=== PATIENT | female | born 1995 | race Caucasian/White ===

== ENCOUNTER 2017-05-02 21:01 | Emergency (ER) | payer MEDICAID, OTHER ==
[2017-05-02 21:09] VITALS: RESP 16
--- NOTE | 2017-05-02 21:30 | C.PDOC ---
Chief Complaint (Nursing): Chest Pain Past Medical History Vital Signs: Last Vital Signs Temp 98 F 05/02/17 21:08 Pulse 76 05/02/17 21:08 Resp 16 05/02/17 21:08 BP 110/74 05/02/17 21:08 Pulse Ox 100 05/02/17 21:08 Surgical History: Appendectomy, Cholecystectomy - Social History Hx Alcohol Use: No Hx Substance Use: No - Immunization History Hx Tetanus Toxoid Vaccination: No Hx Influenza Vaccination: No Hx Pneumococcal Vaccination: No ED Course And Treatment ECG: Interpreted By Me, Viewed By Me ECG Rhythm: Sinus Rhythm ECG Interpretation: Normal, No Acute Changes Interpretation Of ECG: NSR, normal tracings Rate From EC O2 Sat by Pulse Oximetry: 100 Pulse Ox Interpretation: Normal Disposition - Disposition Forms: [employer] (Martiniquais)
--- NOTE | 2017-05-02 21:31 | C.PDOC ---
History Of Present Illness A 21 y/o F with Hx of lightheadedness and dizziness, c/o intermittent dizziness , chest pain, and lightheadedness with occasional SOB that began today. Denies nausea, vomiting, or any other complaints. Time Seen by Provider: 05/02/17 21:28 Chief Complaint (Nursing): Chest Pain History Per: Patient History/Exam Limitations: no limitations Onset/Duration Of Symptoms: Hrs, Intermittent Episodes Current Symptoms Are (Timing): Still Present Severity: Mild Quality: "Pain" Modifying Factors: None Exacerbating Factors: None Recent travel outside of the [place]: No Additional History Per: Patient Past Medical History Reviewed: Historical Data, Nursing Documentation, Vital Signs Vital Signs: Last Vital Signs Temp 98 F 05/02/17 21:08 Pulse 76 05/02/17 21:08 Resp 16 05/02/17 21:08 BP 110/74 05/02/17 21:08 Pulse Ox 100 05/02/17 22:47 Surgical History: Appendectomy, Cholecystectomy Family History: States: Unknown Family Hx - Social History Hx Alcohol Use: No Hx Substance Use: No - Immunization History Hx Tetanus Toxoid Vaccination: No Hx Influenza Vaccination: No Hx Pneumococcal Vaccination: No Review Of Systems Except As Marked, All Systems Reviewed And Found Negative. Cardiovascular: Positive for: Chest Pain, Light Headedness Respiratory: Positive for: Shortness of Breath Gastrointestinal: Negative for: Nausea, Vomiting Neurological: Positive for: Dizziness Physical Exam - Physical Exam Appears: Non-toxic, No Acute Distress Skin: Warm, Dry Head: Atraumatic, Normacephalic Cardiovascular: Rhythm Regular Respiratory: Normal Breath Sounds, No Rales, No Rhonchi, No Wheezing Gastrointestinal/Abdominal: Soft, No Tenderness Neurological/Psych: Oriented x3, Normal Speech, Normal Cognition, Other (No focal defocot) Gait: Steady ED Course And Treatment - Laboratory Results Result Diagrams: 05/02/17 21:34 05/02/17 21:34 ECG: Interpreted By Me, Viewed By Me ECG Rhythm: Sinus Rhythm ECG Interpretation: Normal, No Acute Changes Interpretation Of ECG: NSR, normal tracings Rate From EC O2 Sat by Pulse Oximetry: 100 (RA) Pulse Ox Interpretation: Normal - Radiology CXR: Interpreted by Me, Viewed By Me CXR Interpretation: Yes: No Acute Disease, Other (normal chest film) Medical Decision Making Medical Decision Making: Impression: A 21 y/o F c/o intermittent dizziness, chest pain, and lightheadedness with occasional SOB. Hx of lightheadedness and dizziness. Plans: -CT Head -EKG -Blood work up -CXR -UA -Reassess Disposition Counseled Patient/Family Regarding: Diagnosis - Disposition Referrals: [facility] at [facility] [Outside] Disposition: HOME/ ROUTINE Disposition Time: 22:49 Condition: STABLE Prescriptions: Naproxen [Naprosyn Tab] 375 mg PO TIDPC #20 tab Instructions: Chest Wall Pain (ED) Forms: [employer] (Argentine) - POA Present On Arrival: None - Clinical Impression Clinical Impression: Non-cardiac chest pain - Scribe Statement The provider has reviewed the documentation as recorded by the Scribe Les casillas All medical record entries made by the Scribe were at my direction and personally dictated by me. I have reviewed the chart and agree that the record accurately reflects my personal performance of the history, physical exam, medical decision making, and the department course for this patient. I have also personally directed, reviewed, and agree with the discharge instructions and disposition.
[2017-05-02 21:50] LABS: CHLORIDE 101 mmol/L (98-107); SODIUM 142 mmol/L (132-148)
[2017-05-02 21:51] LABS: POTASSIUM 4.6 mmol/L (3.6-5.2)
[2017-05-02 21:52] LABS: ALB/GLOB RATIO 1.3 (1.0-2.1); ALKALINE PHOSPHATASE 58 U/L (38-126); AST/SGOT 43 U/L (14-36); BILIRUBIN,TOTAL 1.4 mg/dL (0.2-1.3); CARBON DIOXIDE 25 mmol/L (22-30); GFR AFRICAN-AMERICAN > 60; TOTAL PROTEIN 8.5 g/dL (6.3-8.3)
[2017-05-02 21:53] LABS: ALT/SGPT 12 U/L (9-52); BLOOD UREA NITROGEN 16 mg/dL (7-17); CALCIUM 8.9 mg/dl (8.6-10.4); GLUCOSE,RANDOM 95 mg/dL (65-105)
[2017-05-02 22:04] LABS: BASO % 0.4 % (0.0-2.0); EOS # 0.2 K/uL (0.0-0.7); EOS % 2.5 % (0.0-4.0); HEMATOCRIT 41.4 % (34.0-47.0); LYMPH # 3.1 K/uL (1.0-4.3); LYMPH % 38.6 % (20.0-40.0); MEAN CELL VOLUME 94.4 fL (81.0-99.0); MEAN CORPUSCULAR HEMOGLOBIN 32.4 pg (27.0-31.0); MEAN CORPUSCULAR HGB CONC 34.3 g/dL (33.0-37.0); MEAN PLATELET VOLUME 9.5 fL (7.2-11.7); MONO # 0.5 K/uL (0.0-0.8); MONO % 6.2 % (0.0-10.0); RED CELL DISTRIBUTION WIDTH 12.5 % (11.5-14.5); WHITE BLOOD COUNT 7.9 K/uL (4.8-10.8)
--- NOTE | 2017-05-02 22:22 | CT ---
EXAM: CT Head Without Intravenous Contrast CLINICAL HISTORY: 21 years old, female; Condition or disease; Headache; Tension; Additional info: Dizziness/ near passing out TECHNIQUE: Axial computed tomography images of the head/brain without intravenous contrast. This CT exam was performed using one or more of the following dose reduction techniques: automated exposure control, adjustment of the mA and/or kV according to patient size, and/or use of iterative reconstruction technique. COMPARISON: No relevant prior studies available. FINDINGS: Brain: No acute intracranial hemorrhage. No significant white matter disease. No edema. Ventricles: No significant ventriculomegaly. Bones: No acute displaced fracture. Sinuses: Unremarkable as visualized. No acute sinusitis. Mastoid air cells: Unremarkable as visualized. No mastoid effusion. IMPRESSION: No acute intracranial hemorrhage, or suspicious mass effect.
[2017-05-02 23:02] VITALS: BP 109/71; PULSE 79; TEMP 98.9; O2SAT 98
--- NOTE | 2017-05-03 09:13 | RAD ---
HISTORY: chest pain COMPARISON: None available. TECHNIQUE: Chest PA and lateral FINDINGS: LUNGS: No focal consolidation. Please note that chest x-ray has limited sensitivity for the detection of pulmonary masses. PLEURA: No significant pleural effusion identified. No definite pneumothorax . CARDIOVASCULAR: Heart size appears within normal limits. Abnormal contour of the right mediastinum may be exaggerated by patient obliquity. Recommend repeat PA examination with the patient in improved alignment in order to further assess. OSSEOUS STRUCTURES: Degenerative changes. VISUALIZED UPPER ABDOMEN: Unremarkable. OTHER FINDINGS: None. IMPRESSION: Abnormal contour of the right mediastinum may be exaggerated by patient obliquity. Recommend repeat PA examination with the patient in improved alignment in order to further assess this finding and whether it is artifactual or pathology. Study has been marked for PA review.
--- NOTE | 2017-05-04 07:49 | CARD ---
APPROVED REPORT EKG Measurement Heart [id number] <Conclusion> Normal sinus rhythm Normal ECG
== END 2017-05-02 23:02 | disposition home or self-care (01) ==
LOC: C.ER 21:01 → MERGE 21:01 → C.ER 23:02
DX: R07.89 Other chest pain (principal)

== ENCOUNTER 2017-06-14 13:30 | Emergency (ER) | payer MEDICAID, OTHER ==
--- NOTE | 2017-06-14 14:40 | C.PDOC ---
History Of Present Illness 21 year old female presents to the ED for evaluation of mild shortness of breath , sudden lightheadedness, feeling like she going to pass out, and palpitations for 2-3 days. Patient states she sent to ED by PMD, Dr. Bagley, and has had three types of episodes of theese symptoms. She also notes occasional neck pain that radiates to her chest; admits she has been working out in the gym more. Patient states neck pain and radiating chest pain are exacerbated by movement. She denies fever, cough, visual changes, extremity weakness, sensory changes. Time Seen by Provider: 06/14/17 14:34 Chief Complaint (Nursing): Altered Mental Status History Per: Patient History/Exam Limitations: None Onset/Duration Of Symptoms: Days (2-3 days ) Current Symptoms Are (Timing): Still Present Use Of Anticoag/Antiplatelets: No Speech Is: Normal Recent travel outside of the [place]: No Additional History Per: Prior Records (PMD, Dr. Bagley ) Associated Symptoms: Neck Pain. denies: Fever, Chills Past Medical History Reviewed: Historical Data, Nursing Documentation, Vital Signs Vital Signs: Last Vital Signs Temp 98.3 F 06/14/17 17:25 Pulse 96 H 06/14/17 17:25 Resp 18 06/14/17 17:22 BP 102/73 06/14/17 17:25 Pulse Ox 98 06/14/17 17:45 - Medical History PMH: Kidney Stones Surgical History: Appendectomy, Cholecystectomy Family History: States: No Known Family Hx - Social History Hx Tobacco Use: No Hx Alcohol Use: No Hx Substance Use: No - Immunization History Hx Tetanus Toxoid Vaccination: (unk) Hx Influenza Vaccination: No Hx Pneumococcal Vaccination: (unk) Review Of Systems Except As Marked, All Systems Reviewed And Found Negative. Constitutional: Negative for: Fever, Chills Cardiovascular: Positive for: Palpitations. Negative for: Chest Pain Respiratory: Positive for: Shortness of Breath. Negative for: Cough Gastrointestinal: Negative for: Nausea, Vomiting, Abdominal Pain, Diarrhea Neurological: Positive for: Other (feels as though she is going to pass out ). Negative for: Weakness, Numbness Physical Exam - Physical Exam Appears: Well, Non-toxic, No Acute Distress, Other ( appears mildly anxious ) Skin: Warm, Dry Head: Normacephalic Eye(s): bilateral: Normal Inspection Oral Mucosa: Moist Neck: Supple Chest: Symmetrical, No Deformity Cardiovascular: Rhythm Regular Respiratory: Normal Breath Sounds, No Rales, No Rhonchi, No Wheezing Gastrointestinal/Abdominal: Normal Exam, Bowel Sounds, Soft, No Tenderness Extremity: Normal ROM, No Tenderness, No Calf Tenderness, Capillary Refill (< 2 sec all digits ), No Deformity, No Swelling Neurological/Psych: Oriented x3, Normal Speech, Normal Cognition, Normal Cranial Nerves, No Cerebellar Signs, Normal Motor, Normal Sensation, Other ( speaking in full sentences ) Gait: Steady ED Course And Treatment - Laboratory Results Result Diagrams: 06/14/17 15:08 06/14/17 15:08 ECG: Interpreted By Me, Viewed By Me ECG Rhythm: Sinus Rhythm ECG Interpretation: No Acute Changes Interpretation Of ECG: Normal axis, no acute ST or T wave changes. Rate From EC (bpm) O2 Sat by Pulse Oximetry: 98 (room air ) Pulse Ox Interpretation: Normal - Radiology CXR: Viewed By Me, Read By Radiologist CXR Interpretation: Yes: No Acute Disease. No: Infiltrates - Other Rad V/Q Scan X-Ray: Viewed By Me, Read By Radiologist Interpretation: VQ scan. Technique: 8.3 mCi technetium 99-m Xe-133 Gas. 3.0 MCI technetium 99-m MAA administered intravenously. Comparison: Correlation is made to chest x-ray of same day. Findings: Perfusion images do not show a segmental defect. Activity extends expected margin of the lung periphery. Ventilation images do not show any significant areas of ventilation defects. Impression: Low probability for pulmonary embolus. Progress Note: Blood work, including D-dimer, EKG, CXR, UA, Upreg ordered and reviewed. Patient has seafood allergy that causes throat closing up - VQ scan ordered instead of CTA chest. Reevaluation Time: 17:25 Reassessment Condition: Improved (On reassessment, patient is resting comfortably and states she is feeling better. VQ scan shows low probability for PE. EKG and blood work WNL. Patient without cardiac risk factors - do not suspect cardiac etiology. Patient instructed to follow up with PMD in 1-2 days , and she understands she should return to ED if symptoms return/worsen.) Disposition Counseled Patient/Family Regarding: Diagnosis, Need For Followup, Smoking Cessation - Disposition Referrals: Juan Bagley DO [Staff Provider] - Disposition: HOME/ ROUTINE Disposition Time: 17:25 Condition: STABLE Additional Instructions: FOLLOW UP WITH YOUR DOCTOR IN 1-2 DAYS RETURN TO ER IF YOU HAVE ANY CONCERNING SYMPTOMS Instructions: Palpitations (ED), Noncardiac Chest Pain (ED) Forms: [employer] (Occitan) Print Language: BENGALI - Clinical Impression Clinical Impression: Palpitations, Non-cardiac chest pain - Scribe Statement The provider has reviewed the documentation as recorded by the Scribzo Elam All medical record entries made by the Margeibzo were at my direction and personally dictated by me. I have reviewed the chart and agree that the record accurately reflects my personal performance of the history, physical exam, medical decision making, and the department course for this patient. I have also personally directed, reviewed, and agree with the discharge instructions and disposition.
[2017-06-14 15:15] LABS: BASO % 0.4 % (0.0-2.0); EOS # 0.1 K/uL (0.0-0.7); EOS % 0.6 % (0.0-4.0); HEMATOCRIT 41.7 % (34.0-47.0); LYMPH # 1.7 K/uL (1.0-4.3); LYMPH % 17.7 % (20.0-40.0); MEAN CELL VOLUME 92.9 fL (81.0-99.0); MEAN CORPUSCULAR HEMOGLOBIN 32.2 pg (27.0-31.0); MEAN CORPUSCULAR HGB CONC 34.7 g/dL (33.0-37.0); MEAN PLATELET VOLUME 8.8 fL (7.2-11.7); MONO # 0.6 K/uL (0.0-0.8); MONO % 5.9 % (0.0-10.0); NRBC % 0.1 % (0.0-2.0); RED CELL DISTRIBUTION WIDTH 12.7 % (11.5-14.5); WHITE BLOOD COUNT 9.6 K/uL (4.8-10.8)
--- NOTE | 2017-06-14 15:21 | RAD ---
PROCEDURE: CHEST RADIOGRAPH, 1 VIEW HISTORY: palpitations COMPARISON: None available. FINDINGS: LUNGS: The lungs are well inflated and clear. PLEURA: No pneumothorax or pleural fluid seen. CARDIOVASCULAR: Normal. OSSEOUS STRUCTURES: No significant abnormalities. VISUALIZED UPPER ABDOMEN: Normal. OTHER FINDINGS: None. IMPRESSION: No active pulmonary disease.
[2017-06-14 15:24] LABS: ALB/GLOB RATIO 1.2 (1.0-2.1); ALKALINE PHOSPHATASE 66 U/L (38-126); ALT/SGPT 20 U/L (9-52); AST/SGOT 17 U/L (14-36); BILIRUBIN,TOTAL 0.7 mg/dL (0.2-1.3); BLOOD UREA NITROGEN 10 mg/dL (7-17); CALCIUM 9.5 mg/dl (8.6-10.4); CARBON DIOXIDE 24 mmol/L (22-30); CHLORIDE 102 mmol/L (98-107); GFR AFRICAN-AMERICAN > 60; GLUCOSE,RANDOM 93 mg/dL (65-105); POTASSIUM 4.1 mmol/L (3.6-5.2); SODIUM 141 mmol/L (132-148); TOTAL PROTEIN 7.8 g/dL (6.3-8.3)
[2017-06-14 15:26] LABS: RBC URINE 1 /hpf (0-3); URINE BACTERIA RARE (<OCC); URINE BILIRUBIN NEGATIVE (NEGATIVE); URINE BLOOD NEGATIVE (NEGATIVE); URINE COLOR Yellow (YELLOW); URINE GLUCOSE (UA) NORMAL (Normal); URINE KETONE NEGATIVE (NEGATIVE); URINE LEUKOCYTE ESTERASE 3+ Leu/uL (Negative); URINE PROTEIN NEGATIVE (NEGATIVE); URINE UROBILINOGEN NORMAL mg/dL (0.2-1.0); WBC URINE 33 /hpf (0-5)
--- NOTE | 2017-06-14 16:38 | NM ---
VQ scan Technique: 8.3 mCi technetium 99-m Xe-133 Gas. 3.0 MCI technetium 99-m MAA administered intravenously. Comparison: Correlation is made to chest x-ray of same day. Findings: Perfusion images do not show a segmental defect. Activity extends expected margin of the lung periphery. Ventilation images do not show any significant areas of ventilation defects. Impression: Low probability for pulmonary embolus.
[2017-06-14 17:23] VITALS: RESP 18
[2017-06-14 17:25] VITALS: O2SAT 98
[2017-06-14 17:26] VITALS: BP 102/73; PULSE 96; TEMP 98.3
--- NOTE | 2017-06-15 18:44 | CARD ---
APPROVED REPORT EKG Measurement Heart [id number] [place] [id number] <Conclusion> Normal sinus rhythm Rightward axis Borderline ECG
== END 2017-06-14 17:23 | disposition home or self-care (01) ==
LOC: C.ER 13:30
DX: R00.2 Palpitations (principal); R07.89 Other chest pain
CPT/HCPCS: 71010; 78582; 80053; 81001; 82550; 82553; 84484; 84703; 85025; 85378; 93005; 99285; A9524; A9558

== ENCOUNTER 2018-05-29 10:31 | Emergency (ER) | payer MEDICAID, OTHER ==
[2018-05-29 10:51] VITALS: O2SAT 100
--- NOTE | 2018-05-29 11:33 | C.PDOC ---
History Of Present Illness 22 y/o female with PMHx of anxiety and panic attacks, presents to the ED after having a panic attack just prior to arrival. Failed outpatient therapy. Patient states she suddenly felt anxious this morning, consistent with typical panic attack episodes. She notes symptoms have mostly resolved on arrival. Patient reports taking her daily and nightly medications as prescribed. She denies any SI, HI, auditory or visual hallucinations. Time Seen by Provider: 05/29/18 10:58 Chief Complaint (Nursing): Anxiety History Per: Patient History/Exam Limitations: no limitations Onset/Duration Of Symptoms: Hrs Current Symptoms Are (Timing): Gone Modifying Factor(s): None Involuntary Hold By: None Past Medical History Reviewed: Historical Data, Nursing Documentation, Vital Signs Vital Signs: Last Vital Signs Temp 98.3 F 05/29/18 10:41 Pulse 81 05/29/18 10:41 Resp 18 05/29/18 10:41 BP 125/89 05/29/18 10:41 Pulse Ox 100 05/29/18 11:35 - Medical History PMH: Anxiety, Kidney Stones Other PMH: Panic attacks Surgical History: Appendectomy, Cholecystectomy Family History: States: Unknown Family Hx - Social History Hx Tobacco Use: No Hx Alcohol Use: No Hx Substance Use: No - Immunization History Hx Tetanus Toxoid Vaccination: (unk) Hx Influenza Vaccination: No Hx Pneumococcal Vaccination: (unk) Review Of Systems Except As Marked, All Systems Reviewed And Found Negative. Eyes: Negative for: Vision Change Cardiovascular: Negative for: Chest Pain, Palpitations Respiratory: Negative for: Shortness of Breath Gastrointestinal: Negative for: Nausea, Vomiting, Abdominal Pain Neurological: Negative for: Weakness, Numbness, Incoordination Psych: Positive for: Anxiety. Negative for: Psychosis, Suicidal ideation, Other (Homicidal ideation) Physical Exam - Physical Exam Appears: No Acute Distress, Other (Appears anxious but cooperative) Skin: Normal Color, Warm, Dry Head: Atraumatic, Normacephalic Eye(s): bilateral: Normal Inspection Oral Mucosa: Moist Neck: Normal ROM Chest: Symmetrical Cardiovascular: Rhythm Regular, No Murmur Respiratory: Normal Breath Sounds, No Accessory Muscle Use, Other (No respiratory distress) Gastrointestinal/Abdominal: Soft, No Tenderness Extremity: Bilateral: Atraumatic, Normal Color And Temperature, Normal ROM Pulses: Left Radial: Normal, Right Radial: Normal Neurological/Psych: Oriented x3, Normal Speech, Normal Cranial Nerves Gait: Steady ED Course And Treatment O2 Sat by Pulse Oximetry: 100 (RA) Pulse Ox Interpretation: Normal Medical Decision Making Medical Decision Making: Initial Plan: * Urine preg * Urinalysis * Urine drug screen * Xanax 0.25 mg PO Discussed w/ die set up worker, who evaluated patient and bedside and provided outpatient resources. classic anxiety, lost to f/u. resources arranged for her care. Disposition Doctor Will See Patient In The: Office Counseled Patient/Family Regarding: Studies Performed, Diagnosis - Disposition Disposition: HOME/ ROUTINE Disposition Time: 11:39 Condition: GOOD Forms: [employer] (Divehi) - Clinical Impression Clinical Impression: Anxiety, Panic anxiety syndrome - Scribe Statement The provider has reviewed the documentation as recorded by the Ciaran Shields Provider Attestation: All medical record entries made by the Ciaran were at my direction and personally dictated by me. I have reviewed the chart and agree that the record accurately reflects my personal performance of the history, physical exam, medical decision making, and the department course for this patient. I have also personally directed, reviewed, and agree with the discharge instructions and disposition.
[2018-05-29 12:03] LABS: HCG,QUALITATIVE URINE NEGATIVE (NEGATIVE)
[2018-05-29 12:12] VITALS: BP 113/78; PULSE 66; RESP 20; TEMP 98
[2018-05-29 12:14] LABS: SQUAMOUS EPITHIAL 10 /hpf (0-5); URINE BACTERIA RARE (<OCC); URINE BILIRUBIN NEGATIVE (NEGATIVE); URINE BLOOD TRACE (NEGATIVE); URINE CLARITY Hazy (Clear); URINE COLOR YELLOW (YELLOW); URINE GLUCOSE (UA) NEGATIVE (Normal); URINE LEUKOCYTE ESTERASE 2+ Leu/uL (Negative); URINE PROTEIN NEGATIVE (NEGATIVE); URINE UROBILINOGEN 0.2 mg/dL (0.2-1.0)
[2018-05-29 13:03] LABS: BARBITURATES, UR NEGATIVE (NEGATIVE); BENZODIAZEPINES, UR NEGATIVE (NEGATIVE); OPIATES, UR NEGATIVE (NEGATIVE); PHENCYCLIDINE, UR NEGATIVE (NEGATIVE)
== END 2018-05-29 12:14 | disposition home or self-care (01) ==
LOC: C.ER 10:31
DX: F41.0 Panic disorder [episodic paroxysmal anxiety] (principal)
CPT/HCPCS: 81001; 84703; 99284; G0480

== ENCOUNTER 2018-11-22 08:31 | Emergency (ER) | payer MEDICAID, OTHER ==
[2018-11-22 08:34] VITALS: BMI 24.5
[2018-11-22 08:36] VITALS: RESP 18; O2SAT 100
[2018-11-22] MEDS ORDERED: Acetaminophen-Codeine 300/30 mg Tab PO STA (10:21)
--- NOTE | 2018-11-22 10:30 | C.PDOC ---
History Of Present Illness 23 y/o female presents to the ED for evaluation of right-sided neck stiffness and pain. States she is barely able to move head toward the left due to her pain. She denies any associated fevers or headache. No cough, sore throat, congestion, difficulty breathing, or trouble swallowing. Time Seen by Provider: 11/22/18 08:54 Chief Complaint (Nursing): Weakness/Neurological Deficit History Per: Patient History/Exam Limitations: no limitations Onset/Duration Of Symptoms: Hrs Current Symptoms Are (Timing): Still Present Past Medical History Reviewed: Historical Data, Nursing Documentation, Vital Signs Vital Signs: Last Vital Signs Temp 97.9 F 11/22/18 08:35 Pulse 76 11/22/18 08:35 Resp 18 11/22/18 08:35 BP 110/73 11/22/18 08:35 Pulse Ox 100 11/22/18 08:35 - Medical History PMH: Anxiety, Kidney Stones Surgical History: Appendectomy, Cholecystectomy Family History: States: Unknown Family Hx - Social History Hx Tobacco Use: No Hx Alcohol Use: No Hx Substance Use: No - Immunization History Hx Tetanus Toxoid Vaccination: No Hx Influenza Vaccination: No Hx Pneumococcal Vaccination: No Review Of Systems Except As Marked, All Systems Reviewed And Found Negative. Constitutional: Negative for: Fever, Chills Eyes: Negative for: Vision Change ENT: Negative for: Nose Congestion Respiratory: Negative for: Cough, Shortness of Breath Gastrointestinal: Negative for: Nausea, Vomiting Musculoskeletal: Positive for: Neck Pain (stiffness) Neurological: Negative for: Weakness, Numbness, Headache Physical Exam - Physical Exam Appears: Well, Non-toxic, No Acute Distress Skin: Warm, Dry, No Rash Head: Atraumatic, Normacephalic Eye(s): bilateral: Normal Inspection, PERRL, EOMI Oral Mucosa: Moist Neck: No Midline Cervical Tenderness, Supple, Other (Tenderness to the right sternocleidosmastoid muscle) Chest: Symmetrical Cardiovascular: Rhythm Regular, No Murmur Respiratory: Normal Breath Sounds, No Accessory Muscle Use, Other (no respiratory distress) Extremity: Bilateral: Atraumatic, Normal Color And Temperature Pulses: Left Radial: Normal, Right Radial: Normal Neurological/Psych: Oriented x3, Normal Speech, Normal Cranial Nerves ED Course And Treatment O2 Sat by Pulse Oximetry: 100 (RA) Pulse Ox Interpretation: Normal Medical Decision Making Medical Decision Making: Impression: Torticollis Plan: - 400 mg PO Motrin - 5 mg PO Valium - 1 tab Tylenol/Codeine PO Patient is stable for d/c home. Disposition Counseled Patient/Family Regarding: Studies Performed, Diagnosis, Need For Followup, Rx Given - Disposition Referrals: Juan Bagley DO [Staff Provider] - Disposition: HOME/ ROUTINE Disposition Time: 11:13 Condition: STABLE Additional Instructions: follow up with your doctor within 2 days call to make an appointment take medications as prescribed return to ER if symptoms worsens or progress Prescriptions: diaZEpam [Valium] 5 mg PO TID PRN #12 tab PRN Reason: Pain, Moderate (4-7) Naproxen [Naprosyn] 500 mg PO BID PRN #16 tab PRN Reason: Pain, Moderate (4-7) Instructions: Torticollis, Adult Forms: [employer] [facility] (Cymro), General Discharge Instructions, Work Excuse - Clinical Impression Clinical Impression: Torticollis, acute - Scribe Statement The provider has reviewed the documentation as recorded by the Ciaran Shields Provider Attestation: All medical record entries made by the Ciaran were at my direction and personally dictated by me. I have reviewed the chart and agree that the record accurately reflects my personal performance of the history, physical exam, medical decision making, and the department course for this patient. I have also personally directed, reviewed, and agree with the discharge instructions and disposition.
[2018-11-22] MEDS ORDERED: Acetaminophen-Codeine 300/30 mg Tab PO ONE (10:44)
[2018-11-22 11:25] VITALS: BP 110/69; PULSE 72; TEMP 97.8
== END 2018-11-22 11:26 | disposition home or self-care (01) ==
LOC: C.ER 08:31
DX: M43.6 Torticollis (principal)